=== PATIENT | female | born 1985 | race Two or more races ===

== ENCOUNTER 2020-03-06 20:29 | Emergency (ER) | payer OTHER, SELFPAY ==
[2020-03-06 20:40] VITALS: BP 107/59; PULSE 103; RESP 16; TEMP 37.6; BMI 32.3
[2020-03-06 21:59] LABS: UPreg QC Valid YES; Urine Pregnancy NEGATIVE (NEGATIVE)
[2020-03-06 22:26] VITALS: BP 105/65; PULSE 87; RESP 18; TEMP 37.3; O2SAT 99
--- NOTE | 2020-03-06 23:01 | ED.ABDPAIN ---
HPI - Abdominal Pain General Chief Complaint: Abdominal Pain Stated Complaint: wound check Time Seen by Provider: 03/06/20 21:27 Source: patient History of Present Illness HPI narrative: patient states several months ago had a liposuction and since then has been having ongoing problems with his surgical sites, had a wound VAC and saw her surgeon this week however wants a 2nd opinion on her wounds because now they are red with a little bit of oozing. No fevers no chills. MD elicited complaint: abdominal pain Pain Consistency: constant Radiation: none Related Data Previous Rx's Medication Instructions Recorded clindamycin HCl 300 mg PO Q8H #21 cap 03/06/20 Allergies Allergy/AdvReac Type Severity Reaction Status Date / Time No Known Allergies Allergy Unverified 02/19/20 19:52 [No Known Allergies*] Review of Systems Comments: Constitutional : No Weight loss, No Fever, No Chills, No Night Sweats, No Fatigue, No Malaise ENT/Mouth : No Hearing loss, No Ear Pain, No Nasal Congestion, No Sinus Pain, No Hoarseness, No sore throat, No Rhinorrhea, No Swallowing Difficulty Eyes: No Eye Pain, No Swelling, No Redness, No Foreign Body, No Discharge, No Vision Changes Cardiovascular : No Chest Pain, No SOB, No Dyspnea on Exertion, No Orthopnea, No Edema, No Palpitations Respiratory : No Cough, No Sputum, No Wheezing, No Smoke Exposure, No Dyspnea Gastrointestinal : No Nausea, No Vomiting, No Diarrhea, No Constipation, No abdominal Pain, No Hematochezia, No Melena Genitourinary : no irregular bleeding, No Dysuria, No Urinary Frequency, No Hematuria, No Urinary Incontinence, No Urgency, No Flank Pain, No Urinary Flow Changes, No Hesitancy Musculoskeletal : No joint pain, No Myalgias, No Joint Swelling Skin : No Skin Lesions, Umbilical hole open wound without discharge and no erythema. Left-sided 2 cm diameter wound with slight erythema and mild discharge slight tenderness Neuro : No Weakness, No Numbness, No Paresthesias, No Loss of Consciousness, No Dizziness, No Headache Psych : No Anxiety/Panic, No Depression, No SI/HI/AH/VH, No Social Issues, Heme/Lymph: No Bruising, No Bleeding,No Lymphadenopathy Endocrine : No Polyuria, No Polydipsia, No Temperature Intolerance Physical Exam Vital Signs and I&O and Narrative: Vital Signs and I&O: Vital Signs Temp 97.8 F 03/07/20 00:00 Pulse 88 03/07/20 00:00 Resp 16 03/07/20 00:00 BP 104/68 03/07/20 00:00 Pulse Ox 99 03/07/20 00:00 Intake & Output 03/06/20 03/06/20 03/07/20 06:59 18:59 06:59 Weight 80.189 kg Body Mass Index 32.3 reviewed Const: Other: Appearance: Alert. Oriented X3. No acute distress. Eyes: Pupils equal, round and reactive to light. ENT: Pharynx normal. Neck: Normal inspection. Neck supple. CVS: Normal heart rate and rhythm. Pulses normal. Respiratory: No respiratory distress. Breath sounds normal. Abdomen: Soft and umbilical open wound without erythema. Left-sided cellulitic changes circular diameter approximately 2 cm with small incision with small pus drainage however no induration Skin: Skin warm and dry. Normal skin color. Normal skin turgor. Extremities: No lower extremity edema. No lower extremity edema. Neuro: Oriented X 3. No motor deficit. No sensory deficit. General: cooperative Course Reevaluation(s) Reevaluation #1: I discussed with patient need to follow up with her previous surgeon however she wants a 2nd opinion will refer to wound management. At this point patient looks very well nontoxic appearing at the house the patient is toxic MDM - Abdominal Pain Lab Data Labs: Lab Results 03/06/20 Range/Units 21:43 Urine Test NEGATIVE (NEGATIVE) Discharge Plan Discharge Clinical Impression: Abdominal wall cellulitis Patient Disposition: Home, Self-Care Instructions: Cellulitis (ED) Additional Instructions: Thank you for visiting the emergency department today. If your symptoms worsen or do not resolve completely please return to the emergency department immediately or call 911. if he have any questions please call your primary care physician Prescriptions: New clindamycin HCl 300 mg capsule 300 mg PO Q8H Qty: 21 RF: 0 Referrals: [facility] [place] Wound Care Management [Provider Group] - 2 days Interventions: ED Discharge Assessment Last Done: 03/07/20 00:36 Discharge Date/Time: 03/07/20 00:37 [facility] Past Medical History Attestation statement: The following information was validated with the patient. Surgical History (Updated 03/06/20 @ 23:11 by Ovi Irene DO) Hx of abdominal surgery Family History Family History (Updated 03/06/20 @ 23:11 by Ovi Irene DO) Other Patient denies medical problems Social History Social History Alcohol intake: never Smoking Status: Never smoker Use of substances other than those prescribed or required for medical reasons: No Advance Directives: No Advance Directives Information Provided: No
[2020-03-07] VITALS: BP 104/68; PULSE 88; RESP 16; TEMP 36.6; O2SAT 99
[2020-03-07] MEDS: Acetaminophen 325 MG TABLET 650 MG PO (00:30)
== END 2020-03-07 00:37 | disposition home or self-care (01) ==
PROVIDERS: Emergency Provider Emergency Medicine
DX: L03.311 Cellulitis of abdominal wall (principal)
CPT/HCPCS: 81025; 99283; 99284

== ENCOUNTER 2020-09-22 11:31 | Outpatient (REF) | payer OTHER, SELFPAY | END 2020-09-22 11:32 | disposition home or self-care (01) | LOC: HO.LAB 11:31 | PROVIDERS: Visit Provider Internal Medicine | DX: Z20.822 Contact with and (suspected) exposure to COVID-19 (principal) | CPT/HCPCS: C9803; U0003; U0005 ==

== ENCOUNTER 2020-10-13 12:55 | Outpatient (REF) | payer OTHER, SELFPAY | END 2020-10-13 12:56 | disposition home or self-care (01) | LOC: HO.LAB 12:55 | PROVIDERS: Visit Provider Internal Medicine | DX: Z20.822 Contact with and (suspected) exposure to COVID-19 (principal) | CPT/HCPCS: C9803; U0003; U0005 ==

== ENCOUNTER 2022-11-09 19:05 | Emergency (ER) | payer MEDICAID, SELFPAY ==
--- NOTE | 2022-11-09 19:14 | ED_ITS ---
HPI - General Adult General Chief complaint: Urogenital-Female Stated complaint: Trouble using Bathroom Time Seen by Provider: 11/09/22 21:28 Source: patient Mode of arrival: ambulatory Limitations: no limitations History of Present Illness HPI narrative: Patient with no significant past medical history complaining of dysuria, frequency, urgency for last 3 days with chills slight nausea no vomiting no flank pain does have low back pain no history of diabetes patient does not get UTI very often Related Data Previous Rx's Medication Instructions Recorded nitrofurantoin 100 mg PO Q12H 7 days #14 caps 11/09/22 monohydrate/macrocrystals 100 mg capsule (Macrobid) phenazopyridine 200 mg tablet 200 mg PO TID 2 days #6 tabs 11/09/22 (Pyridium) Allergies Allergy/AdvReac Type Severity Reaction Status Date / Time No Known Allergies Allergy Unverified 11/09/22 19:16 [No Known Allergies*] Review of Systems Review of Systems: Yes all other systems are reviewed and are negative [facility] Past Medical History Surgical History (Updated 03/06/20 @ 23:11 by Ovi Irene DO) Hx of abdominal surgery Family History Family History (Updated 03/06/20 @ 23:11 by Ovi Irene DO) Other Patient denies medical problems Social History Social History Alcohol intake: current Alcohol intake frequency: a few times a month Smoked in Last 30 Days: No Use of substances other than those prescribed or required for medical reasons: No Advance Directives: No Advance Directives Information Provided: No Patient : No Physical Exam ED Vital Signs: Vital Signs - 24 hr 11/09/22 19:17 11/09/22 22:42 Temperature 97.7 F 98.1 F Pulse Rate 99 92 Respiratory Rate 16 18 Blood Pressure 139/79 137/85 Pulse Oximetry 97 Oxygen Delivery Method Room Air Room Air BMI result Body Mass Index 34.3 Appearance: Alert. Oriented X3. No acute distress. ENT: Pharynx normal. Oral Mucosa moist Neck: Normal inspection. Neck supple. CVS: Normal heart rate and rhythm. Pulses normal. Respiratory: No respiratory distress. Equal air entry bilateral, no wheezing/rales/rhonchi Abdomen: Soft, mild suprapubic tenderness no rebound tenderness good Bowel sounds are present, no mass palpable, no CVA tenderness Skin: Skin warm and dry. Normal skin color. Normal skin turgor. Extremities: No lower extremity edema. No calf tenderness Neuro: Oriented X 3. No motor deficit. Course Course Course Narrative: 37 year old female presents for evaluation of dysuria for the last 2 days. UA ordered. Patient is currently on her menses Medications Administered Discontinued Medications Generic Name Dose Route Start Last Admin Trade Name Freq PRN Reason Stop Dose Admin Nitrofurantoin Macrocrystals 100 mg 11/09/22 21:40 11/09/22 22:38 Nitrofurantoin Monohyd/M-Cryst 100 Mg Capsule PO 11/09/22 21:41 100 mg ONCE ONE Administration Phenazopyridine HCl 200 mg 11/09/22 21:40 11/09/22 22:39 Phenazopyridine Hcl 200 Mg Tablet PO 11/09/22 21:41 200 mg ONCE ONE Administration Tramadol HCl 50 mg 11/09/22 22:30 11/09/22 22:38 Tramadol Hcl 50 Mg Tablet PO 11/09/22 22:31 50 mg ONCE ONE Administration Medical Decision Making Medical Decision Making [facility] Narrative: Patient with uncomplicated UTI non discharge patient home home on Macrobid and Pyridium Lab Data [facility] Lab Attestation statement: I reviewed the patient's lab results. Labs: Lab Results 11/09/22 11/09/22 11/09/22 Range/Units 19:35 19:35 22:28 POC Glucose 87 (60-115) mg/dL Urine Color [place] Urine Appearance Turbid Urine pH 6.5 (5.0-9.0) Ur Specific [place] 1.025 (1.005-1.025) Urine Protein 300 (3+) H (Neg-Trace) mg/dL Urine Glucose (UA) 250 H (Negative) mg/dL Urine Ketones Trace (Negative) mg/dL Urine Blood Large (3+) H (Negative) Urine Nitrite Positive H (Negative) Ur Leukocyte Esterase Moderate (2+) H (Negative) Urine RBC >20 H (0-2) /HPF Urine WBC >50 H (0-5) /HPF Ur Squamous Epith Cells 11-20 (0-2) /HPF Urine Bacteria 1+ (None Seen) Hyaline Casts 0-2 (0-2) /LPF Urine Test NEGATIVE (NEGATIVE) Discharge Plan Discharge Clinical Impression: Cystitis Patient Disposition: Home, Self-Care Instructions: Urinary Tract Infection in Women (ED) Additional Instructions: Drink plenty of fluids Take antibiotics and Pyridium as prescribed Report to the ER if high fever/vomiting/flank pain/not getting better Prescriptions: New nitrofurantoin monohyd/m-cryst [Macrobid] 100 mg capsule 100 mg PO Q12H 7 Days Qty: 14 0RF Rx Instructions: must administer with a meal/food phenazopyridine [Pyridium] 200 mg tablet 200 mg PO TID 2 Days Qty: 6 0RF Interventions: ED Discharge Assessment Last Done: 11/09/22 22:50 Discharge Date/Time: 11/09/22 22:53
[2022-11-09 19:17] VITALS: BP 139/79; PULSE 99; RESP 16; TEMP 36.5; O2SAT 97; BMI 34.3
[2022-11-09 19:46] LABS: Appearance Urine Turbid; Color Urine Orange; Glucose Urine UA 250 mg/dL (Negative); Leukocyte Esterase Urine Moderate (2+) (Negative); Nitrite Urine Positive (Negative); PH 6.5 (5.0-9.0); Specific Gravity - Urine 1.025 (1.005-1.025); UMIC TRIGGER UACC YES; Urine Blood Large (3+) (Negative); Urine Ketones Trace mg/dL (Negative); Urine Protein 300 (3+) mg/dL (Neg-Trace)
[2022-11-09 19:51] LABS: Bacteria Urine 1+ (None Seen); Hyaline Casts Urine 0-2 /LPF (0-2); UACC Culture Trigger YES; WBC Urine >50 /HPF (0-5)
[2022-11-09 20:09] LABS: RBC Urine >20 /HPF (0-2)
[2022-11-09 22:15] LABS: UPreg QC Valid YES; Urine Pregnancy NEGATIVE (NEGATIVE)
[2022-11-09 22:31] LABS: Glucose, Whole Blood 87 mg/dL (60-115)
[2022-11-09] MEDS: Nitrofurantoin Monohyd/M-Cryst 100 MG CAPSULE PO (22:38)
[2022-11-09] MEDS: traMADoL HCL 50 MG TABLET PO (22:38)
[2022-11-09] MEDS: Phenazopyridine HCL 200 MG TABLET PO (22:39)
[2022-11-09 22:42] VITALS: BP 137/85; PULSE 92; RESP 18; TEMP 36.7
--- NOTE | 2022-11-09 22:53 | PC.NURSE ---
patient was medicated and explained all paperwork patient vitals were stable patient was discarded from everything and released to go home
== END 2022-11-09 22:53 | disposition home or self-care (01) ==
PROVIDERS: Physician Assistant; Emergency Provider Internal Medicine
DX: N30.90 Cystitis, unspecified without hematuria (principal); B95.7 Other staphylococcus as the cause of diseases classified elsewhere
CPT/HCPCS: 81001; 81025; 82947; 87086; 87088; 87186; 99283; 99285

== ENCOUNTER 2024-06-03 13:51 | Emergency (ER) | payer MEDICAID, SELFPAY ==
--- NOTE | ~2024-06-03 | XR_ITS ---
EXAMINATION: XR CHEST CLINICAL INFORMATION: wheezing, shortness of breath x 3 days COMPARISON: None available. TECHNIQUE: 2 views of the chest were obtained. FINDINGS: Lungs are expanded and clear of acute pneumonic process. The heart size is enlarged. Pulmonary vascularity is prominent. No pleural effusion seen. Visualized bones are grossly unremarkable. XR/XR chest 2V IMPRESSION: Borderline cardiomegaly. Electronically signed by: Aidan Ro MD 06/03/2024 02:20 PM EST
--- NOTE | 2024-06-03 13:52 | ED.GENADULT ---
HPI - General Adult General Chief complaint: Asthma Stated complaint: SOB Time Seen by Provider: 06/03/24 15:05 Source: patient Mode of arrival: ambulatory Limitations: no limitations History of Present Illness ED Provider: AKI WHYTE PA-C HPI narrative: 39 year old female with pmhx significant for asthma presents to the ED today for evaluation of shortness of breath and wheezing x3 days. Endorses associated chest discomfort. Admits to using her nebulizer every 4 hours and rescue inhaler without improvement. No known sick contacts. Denies fever, chills, sore throat, cough, sputum production, calf pain. No recent travel or long car rides. No hormonal therapy. Related Data Previous Rx's ?Medication ?Instructions ?Recorded nitrofurantoin 100 mg PO Q12H 7 days #14 caps 11/09/22 monohydrate/macrocrystals 100 mg capsule (Macrobid) phenazopyridine 200 mg tablet 200 mg PO TID 2 days #6 tabs 11/09/22 (Pyridium) albuterol sulfate 2.5 mg/0.5 mL 5 mg inhalation Q4H PRN shortness 06/03/24 solution for nebulization of breath or wheezing #30 ea prednisone 20 mg tablet 40 mg (2 x 20 mg) PO DAILY 5 days 06/03/24 #10 tabs Allergies Allergy/AdvReac Type Severity Reaction Status Date / Time No Known Allergies Allergy Verified 06/03/24 13:56 [No Known Allergies*] Review of Systems Review of Systems: Constitutional: No fever, chills, fatigue, night sweats, weight changes ENT/Mouth: No ear pain, hearing loss, nasal congestion, sinus pain, rhinorrhea, sore throat Eyes: No eye pain, swelling, redness, vision changes, discharge Cardio: No chest pain, palpitations, ACEVES, orthopnea, peripheral edema Pulm: No SOB, dyspnea, hemoptysis, +cough, +wheezing GI: No nausea, vomiting, hematemesis, abdominal pain, diarrhea, constipation, hematochezia, melena : No irregular bleeding, dysuria, frequency, urgency, hesitancy, hematuria, flank pain, urinary flow changes, urinary incontinence or retention MSK: No back pain, neck pain, joint pain, myalgias Skin: No lesions, rashes Neuro: No weakness, numbness, paresthesias, LOC, dizziness, headache Psych: No anxiety/panic, depression, SI/HI, AH/VH All other systems reviewed and are negative. [facility] Past Medical History Attestation statement: The following information was validated with the patient. Source: old records reviewed and nursing notes reviewed Surgical History Hx of abdominal surgery Family History Family History Other Patient denies medical problems Social History Social History Alcohol intake: current Alcohol intake frequency: a few times a month Advance Directives: No Advance Directives Information Provided: Yes Physical Exam ED Vital Signs: Vital Signs - 24 hr 06/03/24 13:53 06/03/24 14:12 06/03/24 17:46 Temperature 98 F Pulse Rate 110 H 110 H 110 H Respiratory Rate 24 H 24 H 18 Blood Pressure 135/90 H Pulse Oximetry 98 Oxygen Delivery Method Room Air BMI result Body Mass Index 34.0 tachycardic, tachypnic, hypertensive General: Well appearing, in no acute distress. Skin: Warm, dry, intact. No rashes or lesions. Head: Normocephalic, atraumatic. EENT: Hearing is intact b/l. Conjunctiva clear. PERRLA. EOM intact. Moist mucous membranes.? Neck: Supple without LAD Cardiac: Chest wall symmetric. RRR Lungs: Normal respiratory effort without accessory muscle use. No tripoding. Bronchospastic cough. Bilateral expiratory wheezes and rhonchi (R>L) Abdomen: Soft, non-tender, non-distended Back: No midline spinous or paraspinal tenderness. No step off deformity. Ext: Upper and lower extremities atraumatic, without tenderness, deformity, swelling or erythema. no calf tenderness. Neuro: AOx3. Normal speech. Ambulating with steady gait. Psych: Appropriate mood and affect. Responds appropriately to questions. Course Course Course Narrative: This is a rapid medical exam performed by Gilma Rosas NP: Additional HPI, ROS, PE not included below will be deferred to primary provider. Patient is a 39-year-old female with history of asthma presenting with 3 days of shortness of breath and wheezing. Using inhalers and nebulizer without relief. Plan: viral serology, CXR, ed bronch protocol Reevaluation(s) Reevaluation #1: 1507 -- Patient tested positive for RSV. Negative for COVID, flu. Chest x-ray does not demonstrate pneumonia. No pleural effusion. meds ordered. 1831 - patient received 2 albuterol treatments, IV Solu-Medrol, IV Mag. She continues to have diffuse expiratory wheezes and rhonchi. She is satting 90% on room air and there are no signs of respiratory distress however she tells me she feels short of breath. Concern for asthma exacerbation secondary to RSV. My recommendation for patient was admission to medicine for IV steroids. She was declining at this time. States she has to tend to her family at home. She will be signing out AMA. Prednisone and albuterol sent to pharmacy for treatment. Encouraged to return at any time. Discussed worrisome signs and symptoms and when to return to the ED. All questions answered at this time. Medications Administered Discontinued Medications Generic Name Dose Route Start Last Admin Trade Name [place] PRN Reason Stop Dose Admin Levalbuterol HCl 3.75 mg/ 0 mg 06/03/24 14:12 06/03/24 14:15 Ipratropium [place] 0.5 mg INHALE 06/03/24 14:13 1 dose ONCE ONE Administration Levalbuterol HCl 1.25 mg/ 0 mg 06/03/24 17:46 06/03/24 17:49 Ipratropium [place] 0.5 mg INHALE 06/03/24 17:47 1 dose ONCE ONE Administration Magnesium Sulfate 2 gm in 50 mls @ 150 mls/hr 06/03/24 16:09 06/03/24 17:01 Magnesium Sulfate/H2o IV 06/03/24 16:28 Infused ONCE ONE Infusion Methylprednisolone Sodium Succinate 125 mg 06/03/24 15:06 06/03/24 16:38 Methylprednisolone Sod Succ 125 Mg/2 Ml Vial IVPUSH 06/03/24 15:07 125 mg ONCE ONE Administration Medical Decision Making Medical Decision Making MDM Narrative: 39 year old female with pmhx significant for asthma presents to the ED today for evaluation of shortness of breath and wheezing x3 days. On arrival, patient tachycardic to 110, hypertensive to 135/90, tachypneic to 24. Afebrile and not hypoxic. No tripoding or accessory muscle use. No obvious respiratory distress. Lungs with diffuse expiratory wheezes/rhonchi (R>L). No calf tenderness. No pitting edema or JVD. No rashes. Differential diagnosis includes viral syndrome, asthma exacerbation, pneumonia, bronchitis. Unlikely pulmonary embolism, pleural effusion, ACS, arrhythmia. Plan for viral swabs, chest x-ray, ED bronch protocol, re-evaluation. Differential Diagnosis Differential Diagnoses: The differential diagnosis associated with the presentation includes as above. Admission/Observation Consideration of admission/observation: Escalation of care including admission/observation considered Patient presents with asthma exacerbation secondary to RSV infection. She was treated with IV medications with minimal improvement. Continues to have expiratory wheezes and rhonchi. Looks generally unwell however satting 98& on RA. I recommended admission to medicine for IV steroids however patient is declining at this time and would like to be discharged home. She is leaving AMA. Lab Data MDM Lab Attestation statement: I reviewed the patient's lab results. as above Labs: Lab Results 06/03/24 Range/Units 15:18 Influenza Type A (PCR) NEGATIVE (Negative) Influenza Type B (PCR) NEGATIVE (Negative) RSV RNA Qual (PCR) POSITIVE A (Negative) SARS-CoV-2 RNA (RT-PCR) NEGATIVE (Negative) Independent Interpretation I performed an independent interpretation of an: Plain X-Ray Interpretation: CXR without focal consolidation or infiltrate Radiology Impression Discussion of test interpretation with radiology: I have reviewed the radiologist's reading. Radiologist Impression: EXAMINATION: XR CHEST CLINICAL INFORMATION: wheezing, shortness of breath x 3 days COMPARISON: None available. TECHNIQUE: 2 views of the chest were obtained. FINDINGS: Lungs are expanded and clear of acute pneumonic process. The heart size is enlarged. Pulmonary vascularity is prominent. No pleural effusion seen. Visualized bones are grossly unremarkable. XR/XR chest 2V IMPRESSION: Borderline cardiomegaly. Electronically signed by: Aidan Ro MD 06/03/2024 02:20 PM [facility] [place], [place] External Record Review External record reviewed: Inpatient record Prescription Management I considered prescription management with: Other (Prednisone) Chronic Conditions Patient?s care impacted by: Other (asthma) Social Determinants Patient?s care significantly limited by Social Determinants of Health including: Other Social Determinant of Health Critical Care Time Critical Care Time Critical Care Time: Yes Total Critical Care Time: 32 Attestation: Critical care time in the amount of 32 minutes has been provided to the patient in terms of direct patient care, frequent reevaluation on IV mag, review and interpretation of medical data and results, and management of potentially life-threatening conditions. This is all outside of any medical procedures. Discharge Plan Discharge Clinical Impression: Respiratory syncytial virus (RSV), Asthma exacerbation Patient Disposition: Left Against Medical Advice Instructions: Respiratory Syncytial Virus (ED), Asthma (ED) Additional Instructions: You were evaluated in the ED today for your breathing. You tested positive for RSV. Your chest xray does not demonstrate pneumonia. You were treated with two breathing treatments and IV medications with minimal improvement. As discussed, my recommendation is that you be admitted to medicine for further treatment with IV steroids. You are declining at this time. I encourage you to return to the ED at any time, or with any new/ worsening symptoms. Treatment for RSV specifically is symptomatic. This does not require treatment with antibiotics. You may take Tylenol ibuprofen as needed for fever or body aches. Continue your albuterol/nebulizer at home as needed for shortness of breath or wheezing. As discussed, if you find yourself using this more often without improvement, please return to the ED as you require further treatment. Prednisone as a steroid that has been sent to your pharmacy. Take this as prescribed with the next dose being tomorrow. You already received a dose of steroids in the ED today. Follow up with your PCP. Return with new or worsening symptoms In the case of an emergency call 911 Prescriptions: New prednisone 20 mg tablet 40 mg PO DAILY 5 Days Qty: 10 0RF albuterol sulfate 2.5 mg/0.5 mL solution for nebulization 5 mg inhalation Q4H PRN (Reason: shortness of breath or wheezing) Qty: 30 0RF No Action nitrofurantoin monohyd/m-cryst [Macrobid] 100 mg capsule 100 mg PO Q12H 7 Days Qty: 14 0RF Rx Instructions: must administer with a meal/food phenazopyridine [Pyridium] 200 mg tablet 200 mg PO TID 2 Days Qty: 6 0RF Stand Alone Forms: Against Medical Advice, Work/School Release Print Language: Lithuanian
[2024-06-03 13:53] VITALS: BP 135/90; PULSE 110; RESP 24; TEMP 36.6; O2SAT 98; BMI 34.0
[2024-06-03 14:12] VITALS: PULSE 110; RESP 24; O2SAT 98
[2024-06-03] MEDS: levalbuterol HCL 3.75 MG, Ipratropium Bromide 0.5 MG INHALE (14:15)
[2024-06-03 16:17] LABS: Influenza A PCR NEGATIVE (Negative); Influenza B PCR NEGATIVE (Negative); Resp Syncy Virus RNA Qual PCR POSITIVE (Negative); SARS COV2 PCR INHOUSE NEGATIVE (Negative)
[2024-06-03] MEDS: methylPREDNISolone Sod Succ 125 MG/2 ML VIAL IVPUSH (16:38)
[2024-06-03] MEDS: Magnesium Sulfate/H2O 2 GM/50 ML PIGGYBACK IV (16:41)
[2024-06-03 17:46] VITALS: PULSE 110; RESP 18; O2SAT 97
[2024-06-03] MEDS: levalbuterol HCL 1.25 MG, Ipratropium Bromide 0.5 MG INHALE (17:49)
[2024-06-03 19:16] VITALS: BP 142/80; PULSE 110; RESP 18; TEMP 37.1; O2SAT 97
== END 2024-06-03 19:16 | disposition left against medical advice (07) ==
PROVIDERS: Registered Nurse Emergency; Emergency Provider Emergency Medicine
DX: J22 Unspecified acute lower respiratory infection (principal); B97.4 Respiratory syncytial virus as the cause of diseases classified elsewhere; J45.901 Unspecified asthma with (acute) exacerbation; R06.02 Shortness of breath; Z03.818 Encounter for observation for suspected exposure to other biological agents ruled out
CPT/HCPCS: 0241U; 71046; 94640; 96365; 96375; 99283; 99284; J2919; J3475

== ENCOUNTER → 2024-06-03 13:53 | Outpatient (BNV) | payer MEDICAID, SELFPAY | PROVIDERS: Visit Provider Radiology Diagnostic Radiology | DX: R06.02 Shortness of breath (principal) | CPT/HCPCS: 71046 ==

== ENCOUNTER 2024-09-02 21:04 | Emergency (ER) | payer MEDICAID, SELFPAY ==
[2024-09-02 21:19] VITALS: BP 143/94; PULSE 100; RESP 16; TEMP 36.7; O2SAT 97; BMI 32.9
[2024-09-02 21:57] LABS: MANUAL DIFF FLAG NO
[2024-09-02 21:58] LABS: Basophils Absolute Auto 0.1 X10*3/uL (0.0-0.2); Basophils Percent Auto 0.9 % (0-2); Eosinophils Absolute Auto 0.6 X10*3/uL (0.0-0.4); Hematocrit 34.6 % (37.0-47.0); Hemoglobin 11.5 g/dl (12.0-16.0); Imm Gran Abs Auto 0.01 X10*3/uL (0.00-0.03); Imm Gran Pct Auto 0.1 % (0.0-0.4); Lymphocytes Absolute Auto 2.5 X10*3/uL (1.2-4.9); Lymphocytes Percent Auto 30.9 % (20-40); Mean Corpuscular HGB Conc 33.2 g/dl (31.0-35.0); Mean Corpuscular Hemoglobin 29.6 pg (27.0-33.0); Mean Corpuscular Volume 89.2 fL (80.0-98.0); Mean Platelet Volume 9.1 fL (9.4-12.3); Monocytes Absolute Auto 0.5 X10*3/uL (0.1-1.2); Monocytes Percent Auto 6.3 % (2-11); Neutrophils Absolute Auto 4.5 x10*3/uL (2.0-8.3); Neutrophils Percent Auto 54.8 % (45-73); Platelet Count 299 X10*3/uL (160-400); Red Blood Count 3.88 X10*6/uL (4.20-5.50); Red Cell Distribution Width 13.3 % (11.0-16.0); White Blood Count 8.2 X10*3/uL (4.8-10.8)
[2024-09-02 22:05] LABS: Appearance Urine Cloudy; Color Urine Dark Yellow; Glucose Urine UA Negative (Negative); Leukocyte Esterase Urine Moderate (2+) (Negative); Nitrite Urine Positive (Negative); PH 7.5 (5.0-9.0); UMIC TRIGGER UACC YES; Urine Blood Trace (Negative); Urine Ketones Negative (Negative); Urine Protein 100 (2+) mg/dL (Neg-Trace)
[2024-09-02 22:13] LABS: Alanine Aminotransferase 59 U/L (0-31); Albumin Level 3.9 g/dL (3.5-5.0); Alkaline Phosphatase 85 U/L (39-117); Anion Gap 10 (12-20); Aspartate Amino Transferase 30 U/L (5-31); Bilirubin Total 0.3 mg/dL (0.0-1.0); Blood Urea Nitrogen 15 mg/dL (9-16); Calcium 8.8 mg/dL (8.4-10.2); Carbon Dioxide 26 mmol/L (22-29); Chloride 109 mmol/L (96-108); Creatinine Clr Calc Pharmacy 83.1; Estimated Glomerular Filt Rate > 60; Glucose Random 97 mg/dL (60-115); Potassium 3.7 mmol/L (3.3-5.1); Sodium 141 mmol/L (135-145); Total Protein 6.8 g/dL (6.5-8.0)
[2024-09-02 22:18] LABS: Bacteria Urine None Seen (None Seen); Hyaline Casts Urine 0-2 /LPF (0-2); Squamous Epithelial Cell Urine 0-2 /HPF (0-2); UACC Culture Trigger YES; WBC Urine 21-50 /HPF (0-5)
[2024-09-03] LABS: UPreg QC Valid YES; Urine Pregnancy NEGATIVE (NEGATIVE)
[2024-09-03 00:09] VITALS: BP 144/91; PULSE 98; RESP 18; TEMP 36.7; O2SAT 97
--- NOTE | 2024-09-03 00:11 | PC.NURSE ---
PA to triage to reeval pt, VSS.
--- NOTE | 2024-09-03 00:19 | ED_ITS ---
HPI - Female Genitourinary General Chief complaint: Urogenital-Female Stated complaint: Flank pain/unable to urinate Time Seen by Provider: 09/02/24 23:49 Source: patient Mode of arrival: ambulatory Limitations: no limitations History of Present Illness ED Provider: Cathy Lane NP HPI Narrative: Patient is a 39-year-old female who presents emergency department for evaluation over the past few days she has been experiencing dysuria, urinary hesitancy, bilateral flank pain. It endorses occasional chills but denies any notable fever. She admits to a history of urinary tract infections in the past, states she was last treated in April of 2024. She denies nausea, vomiting, hematuria, abnormal vaginal discharge or abnormal vaginal bleeding. Denies concern for . LMP 1 month prior. Reports symptoms at this time feel consistent with prior urinary tract infections. Related Data Previous Rx's ?Medication ?Instructions ?Recorded nitrofurantoin 100 mg PO Q12H 7 days #14 caps 11/09/22 monohydrate/macrocrystals 100 mg capsule (Macrobid) phenazopyridine 200 mg tablet 200 mg PO TID 2 days #6 tabs 11/09/22 (Pyridium) albuterol sulfate 2.5 mg/0.5 mL 5 mg inhalation Q4H PRN shortness 06/03/24 solution for nebulization of breath or wheezing #30 ea prednisone 20 mg tablet 40 mg (2 x 20 mg) PO DAILY 5 days 06/03/24 #10 tabs cefpodoxime 200 mg tablet 200 mg PO BID #19 tabs 09/03/24 phenazopyridine 200 mg tablet 200 mg PO TID PRN pain 6 doses #6 09/03/24 (Pyridium) tabs Allergies Allergy/AdvReac Type Severity Reaction Status Date / Time No Known Allergies Allergy Verified 09/02/24 21:23 [No Known Allergies*] Review of Systems 2 Review of Systems: Yes all other systems are reviewed and are negative PMFSH Past Medical History Attestation statement: The following information was validated with the patient. Source: old records reviewed Surgical History Hx of abdominal surgery Family History Family History Other Patient denies medical problems Social History Social History Alcohol intake: current Alcohol intake frequency: does not drink Smoked in Last 30 Days: No Use of substances other than those prescribed or required for medical reasons: No Advance Directives: No Advance Directives Information Provided: Yes Do you have a plan to hurt others: No Plan Physical Exam 2 Vital Signs: Vital Signs: Last Vital Signs Temp 98.0 F 09/03/24 00:09 Pulse 98 09/03/24 00:09 Resp 18 09/03/24 00:09 BP 144/91 H 09/03/24 00:09 Pulse Ox 97 09/03/24 00:09 O2 Del Method Room Air 09/03/24 00:09 BMI result Body Mass Index 32.9 Appearance: Alert.?Oriented to person, place and time. No acute distress.?Normal affect. CVS: Heart sounds normal. Normal heart rate and rhythm.? Pulses normal.?? Respiratory: No respiratory distress.? Lung sounds clear to auscultation bilaterally?? Abdomen: Soft and non-tender. Normoactive bowel sounds. No overt CVA tenderness on examination subjectively with pain Skin: Skin warm and dry.? Normal skin color.? ?? Extremities: No lower extremity edema.? Neuro: Moves all extremities spontaneously. Sensation intact bilaterally. No focal neuro deficits. Ambulates with normal steady gait. Medications Administered Discontinued Medications Generic Name Dose Route Start Last Admin Trade Name Freq PRN Reason Stop Dose Admin Cephalexin HCl 500 mg 09/03/24 00:19 09/03/24 00:33 Cephalexin 500 Mg Capsule PO 09/03/24 00:20 500 mg ONCE ONE Administration Phenazopyridine HCl 200 mg 09/03/24 00:19 09/03/24 00:34 Phenazopyridine Hcl 200 Mg Tablet PO 09/03/24 00:20 200 mg ONCE ONE Administration Medical Decision Making Medical Decision Making MDM Narrative: patient is a 39-year-old female who presents emergency department for evaluation of genitourinary symptoms as per HPI. History and examination concerning for pyelonephritis, no history of urolithiasis, no hematuria, lower suspicion for acute onset at this time. Workup reveals no leukocytosis, has a mild normocytic anemia that does not meet transfusion criteria, no thrombocytopenia. No significant electrolyte derangement. No MAHIN. LFTs are overall unremarkable. Urinalysis consistent with urinary tract infection. She received a single dose of Pyridium in the emergency department in addition to 1st dose of antibiotic, sent prescription for cefpodoxime and Pyridium to pharmacy. HCG is negative not consistent with ectopic . No unilateral abdominal pain or tenderness on examination, she is without concern for sexually transmitted infection. She denies any history of ovarian cyst lower suspicion for tubo-ovarian abscess/PID /torsion /ruptured cyst. At this time feel that she is stable for discharge home, reviewed worrisome signs and symptoms that would warrant re-evaluation in the emergency department. All questions answered. Differential Diagnosis Differential Diagnoses: The differential diagnosis associated with the presentation includes (See narrative above) Admission/Observation Consideration of admission/observation: Escalation of care including admission/observation considered Lab Data MDM Lab Attestation statement: I reviewed the patient's lab results. ( See narrative above) 09/02/24 21:46 09/02/24 21:46 Labs: Lab Results 09/02/24 Range/Units 21:46 WBC 8.2 (4.8-10.8) X10*3/uL RBC 3.88 L (4.20-5.50) X10*6/uL Hgb 11.5 L (12.0-16.0) g/dl Hct 34.6 L (37.0-47.0) % MCV 89.2 (80.0-98.0) fL MCH 29.6 (27.0-33.0) pg MCHC 33.2 (31.0-35.0) g/dl RDW 13.3 (11.0-16.0) % Plt Count 299 (160-400) X10*3/uL MPV 9.1 L (9.4-12.3) fL Immature Gran % (Auto) 0.1 (0.0-0.4) % Neut % (Auto) 54.8 (45-73) % Lymph % (Auto) 30.9 (20-40) % [place] % (Auto) 6.3 (2-11) % Eos % (Auto) 7.0 H (0-4) % Baso % (Auto) 0.9 (0-2) % Lymph # (Auto) 2.5 (1.2-4.9) X10*3/uL [place] # (Auto) 0.5 (0.1-1.2) X10*3/uL Eos # (Auto) 0.6 H (0.0-0.4) X10*3/uL Baso # (Auto) 0.1 (0.0-0.2) X10*3/uL Abs Immat Gran (auto) 0.01 (0.00-0.03) X10*3/uL Absolute Neuts (auto) 4.5 (2.0-8.3) x10*3/uL Absolute Nucleated RBC 0.000 (0.0-0.012) X10*3/uL Nucleated RBC % (auto) 0.0 (0.0-0.2) /100WBC Sodium 141 (135-145) mmol/L Potassium 3.7 (3.3-5.1) mmol/L Chloride 109 H (96-108) mmol/L Carbon Dioxide 26 (22-29) mmol/L Anion Gap 10 L (12-20) BUN 15 (9-16) mg/dL Creatinine 0.89 (0.5-1.4) mg/dL Estim Creat Clear Calc 83.1 Estimated GFR > 60 Random Glucose 97 (60-115) mg/dL Calcium 8.8 (8.4-10.2) mg/dL Total Bilirubin 0.3 (0.0-1.0) mg/dL AST 30 (5-31) U/L ALT 59 H (0-31) U/L Alkaline Phosphatase 85 (39-117) U/L Total Protein 6.8 (6.5-8.0) g/dL Albumin 3.9 (3.5-5.0) g/dL Urine Color Dark Yellow Urine Appearance Cloudy Urine pH 7.5 (5.0-9.0) Ur Specific [place] 1.020 (1.005-1.025) Urine Protein 100 (2+) H (Neg-Trace) mg/dL Urine Glucose (UA) Negative (Negative) mg/dL Urine Ketones Negative (Negative) mg/dL Urine Blood Trace H (Negative) Urine Nitrite Positive H (Negative) Ur Leukocyte Esterase Moderate (2+) H (Negative) Urine RBC 3-5 H (0-2) /HPF Urine WBC 21-50 (0-5) /HPF Ur Squamous Epith Cells 0-2 (0-2) /HPF Urine Bacteria None Seen (None Seen) Hyaline Casts 0-2 (0-2) /LPF Urine Test NEGATIVE (NEGATIVE) External Record Review External record reviewed: Outpatient record Prescription Management I considered prescription management with: Pain Medication and Antibiotic Discharge Plan Discharge Clinical Impression: Pyelonephritis Patient Disposition: Home, Self-Care Instructions: Kidney Infection (ED) Additional Instructions: testing in the emergency department today reveals findings consistent with urinary tract infection, given your associated pain in the back is concerning that infection has traveled upwards towards her kidneys. As discussed, your blood work was reassuring today, there was no evidence of damage or injury to your kidney functioning. You received a single dose of Pyridium in the emergency department to help with the burning with urination please be aware that this will cause your urine to turn a bright orange color please do not be alarmed. I have sent an additional prescription to the pharmacy for 5 additional doses. You also received a 1st dose of antibiotic in the emergency department today. I have sent a prescription to the pharmacy for cefpodoxime which he will take twice daily for a total of 10 days. You may pick this up from the pharmacy tomorrow and take your next dose tomorrow morning. Follow-up with your primary care doctor. Return with any new or worsening symptoms or concerns which includes but is not limited to worsening pain, inability to urinate, nausea with persistent vomiting, fevers, chills. Prescriptions: New phenazopyridine [Pyridium] 200 mg tablet 200 mg PO TID PRN (Reason: pain) Qty: 6 0RF cefpodoxime 200 mg tablet 200 mg PO BID Qty: 19 0RF Rx Instructions: must administer with a meal/food No Action nitrofurantoin monohyd/m-cryst [Macrobid] 100 mg capsule 100 mg PO Q12H 7 Days Qty: 14 0RF Rx Instructions: must administer with a meal/food phenazopyridine [Pyridium] 200 mg tablet 200 mg PO TID 2 Days Qty: 6 0RF prednisone 20 mg tablet 40 mg PO DAILY 5 Days Qty: 10 0RF albuterol sulfate 2.5 mg/0.5 mL solution for nebulization 5 mg inhalation Q4H PRN (Reason: shortness of breath or wheezing) Qty: 30 0RF Referrals: Physician,Unknown J [Primary Care Provider] - Print Language: Mongolian
[2024-09-03] MEDS: cephALEXin 500 MG CAPSULE PO (00:33)
[2024-09-03] MEDS: Phenazopyridine HCL 200 MG TABLET PO (00:34)
--- OUTSIDE RECORDS SUMMARY | 2024-09-03 00:52 | XMS_ITS | Clinical Summary ---
Author Organization [address] [facility] Address [address] [place] [address] Phone Care Team Providers Care Working Supervisor Name Role Phone Heather Henderson RESOURCE TEACHER Primary Care Provider Allergies No known active allergies Medications fluconazole (DIFLUCAN) 150 mg tablet Take 1 Tab by mouth daily. 03/04/2020 Active oxyCODONE-aceta minophen (PERCOCET) 5-325 mg per tablet Take 1-2 tablets by mouth every 4 hours as needed for Pain. Take 1-2 Tabs Every 4 hours as needed for severe pain 02/13/2020 Active Social History Tobacco Use Types Packs/Day Years Used Date Smoking Tobacco: Never Assessed Comments Unknown Sex and Gender Information Value Date Recorded Sex Assigned at Not on file Legal Sex Female 3:10 PM EST Gender Identity Not on file Sexual Orientation Not on file Plan of Treatment Health Maintenance Due Date Last Done Comments Breast Cancer Screening 1984 DTaP,Tdap,and Td Vaccines (1 - Tdap) 2003 Hepatitis B Vaccines (1 of 3 - 19+ 3-dose series) 2003 Cervical Cancer Screening: P ap Smear 07/15/2017 07/15/2014, 07/15/2014 Depression Screening 05/03/2022 HIV Screening 05/03/2022 Hepatitis C Screening 05/03/2022 Social Influencers of Health Screening 05/03/2022 COVID-19 Vaccine ( - 2023-2 5 season) 2024 Influenza Vaccine (#1) 2024 HIB Vaccines Aged Out No longer eligi ble based on patient's age to complete this topic HPV Vaccines Aged Out No longer eligi ble based on patient's age to complete this topic Hepatitis A Vaccines Aged Out No long er eligible based on patient's age to complete this topic IPV Vaccines Aged Out No longer eligi ble based on patient's age to complete this topic MMR Vaccines Aged Out No longer eligi ble based on patient's age to complete this topic Meningococcal ACWY Vaccine Aged Out N o longer eligible based on patient's age to complete this topic Meningococcal B Vacine Aged Out No lo nger eligible based on patient's age to complete this topic Pneumococcal Vaccine: Pediatrics (0 to 5 Years) and At-Risk Patients (6 to 64 Years) Aged Out No longer eligible b ased on patient's age to complete this topic RSV Immunization Patients Under 20 months Aged Out No longer eligible b ased on patient's age to complete this topic Varicella Vaccines Aged Out No longer eligible based on patient's age to complete this topic Procedures Procedure Name Priority Date/Time Associated Diagnosis Comments HPV Routine 07/15/2014 from Last 3 Months or Most Recently Relevant to Health Maintenance Results * Cervical Cancer Screening: HPV (07/15/2014) Cervical Cancer Screening: HPV Abstracted ,Negative Historical Provider MD HEALTH MAINTENANCE Final Result from Last 3 Months or Most Recently Relevant to Health Maintenance [place] Care Teams Working Supervisor Relationship Specialty Start Date End Date Gurung, Heather, RESOURCE TE[employer]ER [address] [place] [id number] PCP - General 11/06/22
[2024-09-03 01:02] VITALS: BP 144/91; PULSE 98; RESP 18; TEMP 36.7; O2SAT 97
== END 2024-09-03 01:03 | disposition home or self-care (01) ==
PROVIDERS: Emergency Provider Emergency Medicine
DX: N12 Tubulo-interstitial nephritis, not specified as acute or chronic (principal); R33.9 Retention of urine, unspecified; R10.2 Pelvic and perineal pain; Z79.899 Other long term (current) drug therapy
CPT/HCPCS: 36415; 80053; 81001; 81003; 81025; 85025; 87086; 87088; 87186; 99283; 99284

== ENCOUNTER 2025-04-19 13:17 | Emergency (ER) | payer MEDICAID, SELFPAY ==
[2025-04-19] VITALS (8 sets, daily range): BP systolic 121–135; BP diastolic 65–72; PULSE 99–131; RESP 16–18; TEMP 36.6–37.4; O2SAT 94–99; BMI 37.1
--- NOTE | ~2025-04-19 | XR_ITS ---
CLINICAL HISTORY: fever, sob 2 view chest x-ray. Comparison: 06/03/2024 Findings: No consolidation or effusion. Cardiac and mediastinal contours are stable. Bones unremarkable. Impression: 1. No acute pulmonary disease. This document has been electronically signed by: Chan Ashley MD on 04/19/2025 13:53:36
--- NOTE | 2025-04-19 13:19 | ED_ITS ---
HPI - General Adult General Chief complaint: Dyspnea Stated complaint: sob Time Seen by Provider: 04/19/25 15:04 Source: patient, family (Family member at bedside), RN notes reviewed and old records reviewed Mode of arrival: ambulatory Limitations: no limitations History of Present Illness ED Provider: MAURY Concepcion HPI narrative: 40-year-old female with medical history of asthma presents to the ED due to 2 days of subjective fevers, chills, dry persistent cough, shortness of breath, general malaise. Patient reports she has been using her albuterol inhaler at home without relief. Denies sick contacts. Denies chest pain, abdominal pain, nausea, vomiting, diarrhea, urinary symptoms MD complaint: fever, general malaise, cough, SOB, Related Data Previous Rx's ?Medication ?Instructions ?Recorded nitrofurantoin 100 mg PO Q12H 7 days #14 ca ps 11/09/22 monohydrate/macrocrystals 100 mg capsule (Macrobid) phenazopyridine 200 mg tablet 200 mg PO TID 2 days #6 tabs 11/09/22 (Pyridium) albuterol sulfate 2.5 mg/0.5 mL 5 mg inhalation Q4H MO N shortness 06/03/24 solution for nebulization of breath or wheezing #30 ea prednisone 20 mg tablet 40 mg (2 x 20 mg) PO DAILY 5 days 06/03/24 #10 tabs cefpodoxime 200 mg tablet 200 mg PO BID #19 tabs 09/03 phenazopyridine 200 mg tablet 200 mg PO TID PRN pain 6 doses #6 09/03/24 (Pyridium) tabs albuterol sulfate 90 mcg/actuation 2 inh inhalation Q4 -6H PRN 04/19/25 aerosol inhaler (Ventolin HFA) shortness of breath or wheezing #6.7 grams prednisone 20 mg tablet 20 mg PO BID 4 days #8 tabs 04/19/25 Allergies Allergy/AdvReac Type Severity Reaction Status Date / Time No Known Allergies (No Known Allergy Verified 04/19/25 13:26 Allergies*) Review of Systems 2 Review of Systems: Yes all other systems are reviewed and are negative PMFSH Past Medical History Attestation statement: The following information was validated with the patient. Source: old records reviewed and nursing notes reviewed Surgical History Hx of abdominal surgery Family History Family History Other Patient denies medical problems Social History Social History Alcohol intake: current Alcohol intake frequency: does not drink Smoked in Last 30 Days: No Advance Directives: No Advance Directives Information Provided: Yes Do you have a plan to hurt others: No Plan Physical Exam ED Vital Signs: Vital Signs - 24 hr 04/19/25 13:19 04/19/25 15:49 04/19/25 16:06 Temperature 97.8 F Pulse Rate 115 H 115 H Respiratory Rate 18 18 18 Blood Pressure 127/70 Pulse Oximetry 97 Oxygen Delivery Method Room Air 04/19/25 16:06 04/19/25 17:21 04/19/25 17:22 Temperature 99.4 F 99.2 F 99.2 F Pulse Rate 131 H 115 H Respiratory Rate 18 16 Blood Pressure 121/65 135/68 Pulse Oximetry 99 95 Oxygen Delivery Method Room Air Room Air 04/19/25 17:23 04/19/25 19:36 04/19/25 19:50 Temperature 99.2 F 98.6 F 98.6 F Pulse Rate 108 H 99 Respiratory Rate 18 18 Blood Pressure 121/72 121/72 Pulse Oximetry 94 94 Oxygen Delivery Method Room Air Room Air BMI result Body Mass Index 37.1 GENERAL APPEARANCE: ?AxOx4, no acute distress. HEENT: ?NC, AT. MMM. EOMI, clear conjunctiva, oropharynx clear. NECK: ?Supple without lymphadenopathy.? No stiffness or restricted ROM. HEART:? Normal rate and regular rhythm, normal S1/S2, no m/r/g LUNGS:?Mild expiratory wheeze, no ronchi present ABDOMEN: ?Soft, nontender, nondistended BACK: No CVAT, no obvious deformity. EXTREMITIES: ?Without cyanosis, clubbing or edema. NEUROLOGICAL: ?Grossly nonfocal. Alert and oriented, moving all 4 extremities. Skin: ?Warm and dry without any rash. Course Course Course Narrative: This is a Rapid Medical Examination (RME) performed by R. Raimonde PA-C in triage. Full HPI, ROS, assessment and treatment plan per primary provider in the Main ED. Hx: 40 yo F hx asthma here for eval of shortness of breath, fever, chest tightness x yesterday. Plan: viral swabs cxr Medications Administered Discontinued Medications Generic Name Dose Route Start Last Admin Trade Name Freq PRN Reason Stop Dose Admin Albuterol Sulfate 5 mg/ 0 mg 04/19/25 15:46 04/19/25 15:50 Albuterol/Ipratropium 3 ml INHALE 04/19/25 15:47 1 each ONCE ONE Administration Lactated Ringer's 1,000 mls @ 999 mls/hr 04/19/25 15:40 04/19/25 17:23 Lr IV 04/19/25 16:40 Infused .Q1H1M ONE Infusion Magnesium Sulfate 2 gm in 50 mls @ 150 mls/hr 04/19/25 15:40 04/19/25 17:23 Magnesium Sulfate/H2o IV 04/19/25 15:59 Infused ONCE ONE Infusion Acetaminophen 1,000 mg in 100 mls @ 400 mls/hr 04/19/25 15:40 04/19/25 17:22 Ofirmev IV 04/19/25 15:54 Infused ONCE ONE Infusion Lactated Ringer's 1,000 mls @ 999 mls/hr 04/19/25 17:23 04/19/25 17:50 Lr IV 04/19/25 18:23 999 mls/hr .Q1H1M ONE Administration Ibuprofen 400 mg 04/19/25 15:40 04/19/25 16:09 Ibuprofen 400 Mg Tablet PO 04/19/25 15:41 400 mg ONCE ONE Administration Methylprednisolone Sodium Succinate 60 mg 04/19/25 15:40 04/19/25 16:10 Methylprednisolone Sod Succ 125 Mg/2 Ml Vial IVPUSH 04/19/25 15:41 60 mg ONCE ONE Administration Medical Decision Making Medical Decision Making MDM Narrative: 40-year-old female with medical history of asthma presents to the ED due to 2 days of subjective fevers, chills, dry persistent cough, shortness of breath, general malaise. Patient reports she has been using her albuterol inhaler at home without relief VS on initial observation-BP 127/70, pulse rate of 115, respiratory rate of 18, afebrile with oral temp of 97.8?, O2 saturation 97% on room air. Physical exam reveals mild expiratory wheeze without rhonchi, cardiac exam was tachycardic rate, normal rhythm, no murmurs/rubs/gallops, abdomen is soft, nondistended, no rigidity, no guarding, nontender, no edema of the lower extremities Labs without leukocytosis/leukopenia, normocytic anemia with a hemoglobin of 11.7, and hematocrit of 36.5, transaminitis with AST of 73, ALT of 131. Viral serology positive for flu A. CXR without infiltrates, consolidations, no acute cardiopulmonary disease Patient without leukocytosis, afebrile with oral temp of 99.2?. Patient was medicated with 2 L IV fluids, 1 g IV Tylenol, 400 mg p.o. ibuprofen, 2 g IV magnesium sulfate, 60 mg Solu-Medrol, 5 mg Ventolin breathing treatment. Patient states she feels ?better? then when she initially presented. Patient's symptoms most likely due to influenza A. Patient will be discharged home with 4 day course of 40 mg prednisone, and albuterol inhaler as she states she is out of this medication at home. I counseled patient to follow up with her primary care doctor to ensure resolution of her symptoms. Patient feels well enough to go home for self-care and is in agreement with the plan. Differential Diagnosis Differential Diagnoses: The differential diagnosis associated with the presentation includes Asthma exacerbation COVID Flu Viral illness Admission/Observation Consideration of admission/observation: Escalation of care including admission/observation considered Lab Data MDM Lab Attestation statement: I reviewed the patient's lab results. 04/19/25 15:58 04/19/25 15:58 Labs: Lab Results 04/19/25 04/19/25 Range/Units 13:46 15:58 WBC 6.1 (4.8-10.8) X10*3/uL RBC 4.00 L (4.20-5.50) X10*6/uL Hgb 11.7 L (12.0-16.0) g/dl Hct 36.5 L (37.0-47.0) % MCV 91.3 (80.0-98.0) fL MCH 29.3 (27.0-33.0) pg MCHC 32.1 (31.0-35.0) g/dl RDW 13.4 (11.0-16.0) % Plt Count 235 (160-400) X10*3/uL MPV 9.5 (9.4-12.3) fL Immature Gran % (Auto) 0.2 (0.0-0.4) % Neut % (Auto) 69.5 (45-73) % Lymph % (Auto) 17.4 L (20-40) % Edgar % (Auto) 11.1 H (2-11) % Eos % (Auto) 1.1 (0-4) % Baso % (Auto) 0.7 (0-2) % Lymph # (Auto) 1.1 L (1.2-4.9) X10*3/uL Edgar # (Auto) 0.7 (0.1-1.2) X10*3/uL Eos # (Auto) 0.1 (0.0-0.4) X10*3/uL Baso # (Auto) 0.0 (0.0-0.2) X10*3/uL Abs Immat Gran (auto) 0.01 (0.00-0.03) X10*3/uL Absolute Neuts (auto) 4.2 (2.0-8.3) x10*3/uL Absolute Nucleated RBC 0.000 (0.0-0.012) X10*3/uL Nucleated RBC % (auto) 0.0 (0.0-0.2) /100WBC Sodium 136 (135-145) mmol/L Potassium 4.0 (3.3-5.1) mmol/L Chloride 105 (96-108) mmol/L Carbon Dioxide 24 (22-29) mmol/L Anion Gap 11 L (12-20) BUN 9 (9-16) mg/dL Creatinine 0.77 (0.5-1.4) mg/dL Estim Creat Clear Calc 101.4 Estimated GFR > 60 Random Glucose 110 (60-115) mg/dL Calcium 8.5 (8.4-10.2) mg/dL Magnesium 2.0 (1.6-2.6) mg/dL Total Bilirubin 0.2 (0.0-1.0) mg/dL AST 73 H (5-31) U/L ALT 131 H (0-31) U/L Alkaline Phosphatase 84 (39-117) U/L Total Protein 6.9 (6.5-8.0) g/dL Albumin 4.2 (3.5-5.0) g/dL Influenza Type A (PCR) POSITIVE A (Negative) Influenza Type B (PCR) NEGATIVE (Negative) RSV RNA Qual (PCR) NEGATIVE (Negative) SARS-CoV-2 RNA (RT-PCR) NEGATIVE (Negative) Independent Interpretation I performed an independent interpretation of an: Plain X-Ray Interpretation: I personally interpreted the CXR which was negative for infiltrates, consolidations, pneumothorax, pleural effusion, pulmonary edema, I agree with the radiologist's interpretation Radiology Impression Discussion of test interpretation with radiology: I have reviewed the radiologist's reading. Radiologist Impression: CXR Findings: No consolidation or effusion. Cardiac and mediastinal contours are stable. Bones unremarkable. Impression: 1. No acute pulmonary disease. This document has been electronically signed by: Chan Ashley MD on 04/19/2025 13:53:36 Dictated By: Chan Ashley MD Signed By: <Electronically signed by Chan Ashley MD in OV> 04/19/25 1354 Independent Historian Clinical information obtained from an independent historian. History obtained from or confirmed by: Other (Family member at bedside corroborating history) External Record Review External record reviewed: Inpatient record, Office record and Outpatient record Prescription Management I considered prescription management with: Antibiotic No antibiotics indicated, patient positive for influenza A Chronic Conditions Patient?s care impacted by: Other (Asthma) Discharge Plan Discharge Clinical Impression: Influenza A Patient Disposition: Home, Self-Care Additional Instructions: You were evaluated in the ED due to fevers, shortness of breath, general malaise. Your lab work was reassuring as you did not have a significant elevation or decrease in your white blood cell count indicative of systemic infection, no evidence of anemia, or electrolyte abnormalities. Your chest x- ray was normal. You were medicated in the department with 1 g of IV Tylenol, 400 mg ibuprofen, 2 L IV fluids, 2 g magnesium sulfate, and 60 mg Solu-Medrol for support of your lungs. Your swabs were positive for influenza A which was most likely causing your symptoms. It is important that you get adequate hydration through sports drinks like Gatorade, Powerade or Pedialyte. It is normal to have a decreased appetite during this time, just ensure that you are getting plenty of fluids and advance her appetite as tolerated. To manage fever and pain at home you can take 500 mg of Tylenol, and 400 mg of ibuprofen every 6 hours. Please follow up with your primary care doctor to ensure resolution of your symptoms. Please return to the emergency department if you experience fevers over 100.4? that are not managed by Tylenol/ibuprofen, chest pain, shortness of breath, abdominal pain, nausea, vomiting or any new/worsening/concerning symptoms. Prescriptions: New prednisone 20 mg tablet 20 mg PO BID 4 Days Qty: 8 0RF albuterol sulfate [Ventolin HFA] 90 mcg/actuation HFA aerosol inhaler 2 inh inhalation Q4-6H PRN (Reason: shortness of breath or wheezing) Qty: 6.7 0RF No Action nitrofurantoin monohyd/m-cryst [Macrobid] 100 mg capsule 100 mg PO Q12H 7 Days Qty: 14 0RF Rx Instructions: must administer with a meal/food phenazopyridine [Pyridium] 200 mg tablet 200 mg PO TID 2 Days Qty: 6 0RF prednisone 20 mg tablet 40 mg PO DAILY 5 Days Qty: 10 0RF albuterol sulfate 2.5 mg/0.5 mL solution for nebulization 5 mg inhalation Q4H PRN (Reason: shortness of breath or wheezing) Qty: 30 0RF phenazopyridine [Pyridium] 200 mg tablet 200 mg PO TID PRN (Reason: pain) Qty: 6 0RF cefpodoxime 200 mg tablet 200 mg PO BID Qty: 19 0RF Rx Instructions: must administer with a meal/food Stand Alone Forms: Work/School Release Interventions: ED Discharge Assessment Last Done: 04/19/25 19:50 Discharge Date/Time: 04/19/25 19:50 Print Language: [place]
[2025-04-19 14:25] LABS: Resp Syncy Virus RNA Qual PCR NEGATIVE (Negative); SARS COV2 PCR INHOUSE NEGATIVE (Negative)
--- OUTSIDE RECORDS SUMMARY | 2025-04-19 14:44 | XMS_ITS | Clinical Summary ---
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 Phone Unavailable Primary Care Provider Unavailabl e Social History Tobacco Use Types Packs/Day Years Used Date Smoking Tobacco: Never Assessed Comments Unknown Sex and Gender Information Value Date Recorded Sex Assigned at Not on file Legal Sex Female 2:16 AM EDT Gender Identity Not on file Sexual Orientation Not on file Plan of Treatment Health Maintenance Due Date Last Done Comments Depression Screening 1984 SDOH Screening 1984 Disability Screening 1984 Alcohol/Substance Use Screening 1996 Tobacco Screening 1996 Family Planning (PISQ) 1999 HPV Vaccines (1 - 3-dose series) 1999 Hepatitis C Screening 2002 Hepatitis A Vaccines (1 of 2 - Risk 2-dose series) 2003 Hepatitis B Vaccines (1 of 3 - 19+ 3-dose series) 2003 Pneumococcal Vaccine: Pediatrics (0 to 5 Years) and At-Risk Patients (6 to 49) Years (1 of 2 - PCV) 2003 Pap Smear 2005 Cervical Cancer Screening 2014 HPV/Cotest 2014 Mammogram 2024 COVID-19 Vaccine (3 - 2024-2 6 season) 2025 08/01/2022, 10/05/2021 Influenza Vaccine (#1) 2025 DTaP/Tdap/Td Vaccines (2 - T d or Tdap) 10/17/2032 10/17/2022 Zoster Vaccines (1 of 2) 2034 RSV Patients and Patients Aged 60 years or older (1 - 1-dose 75+ series) 2059 HIV Screening Completed 04/15/2020 HIB Vaccines Aged Out No longer eligi ble based on patient's age to complete this topic IPV Vaccines Aged Out No longer eligi ble based on patient's age to complete this topic Meningococcal B Vaccine Aged Out No l onger eligible based on patient's age to complete this topic Meningococcal Vaccine Aged Out No oskar akanksha eligible based on patient's age to complete this topic RSV under 20 months Aged Out No longe r eligible based on patient's age to complete this topic Rotavirus Vaccines Aged Out No longer eligible based on patient's age to complete this topic
--- OUTSIDE RECORDS SUMMARY | 2025-04-19 14:44 | XMS_ITS | Clinical Summary ---
Author Organization [facility] Address [address] [place] [address] Phone Care Team Providers Care Editor & Co Founder Name Role Phone Heather Henderson PITA Primary Care Provider [phone] Allergies No known active allergies Medications fluconazole (DIFLUCAN) 150 mg tablet Take 1 Tab by mouth daily. 03/04/2020 Active oxyCODONE-aceta minophen (PERCOCET) 5-325 mg per tablet Take 1-2 tablets by mouth every 4 hours as needed for Pain. Take 1-2 Tabs Every 4 hours as needed for severe pain 02/13/2020 Active Active Problems No known active problems Social History Tobacco Use Types Packs/Day Years Used Date Smoking Tobacco: Never Smokeless Tobacco: Never Tobacco Cessation:Counseling Given: Not Answered Comments Unknown Sex and Gender Information Value Date Recorded Sex Assigned at Not on file Legal Sex Female 3:10 PM EST Gender Identity Not on file Sexual Orientation Not on file Obstetrics History Last Filed Vital Signs Vital Sign Reading Time Taken Comments Blood Pressure 126/83 01/09/2025 6:54 PM EDT Pulse 100 01/09/2025 8:05 PM EDT Temperature 36.9 C (98.4 F) 01/09/2025 6:54 PM EDT Respiratory Rate 16 01/09/2025 6:54 PM EDT Oxygen Saturation 95% 01/09/2025 6:54 PM EDT Inhaled Oxygen Concentration - - Weight 82.6 kg (182 lb) 01/09/2025 6:54 PM EDT Height 157.5 cm (5' 2 ) 01/09/2025 6:54 PM EDT Body Mass Index 33.29 01/09/2025 6:54 PM EDT Plan of Treatment Health Maintenance Due Date Last Done Comments Breast Cancer Screening 1984 Hepatitis A Vaccines (1 of 2 - Risk 2-dose series) 2003 Pneumococcal Vaccine: Pediatrics (0 to 5 Years) and At-Risk Patients (6 to 49 Years) (1 of 2 - PCV) 2003 HPV Vaccines (1 - 3-dose SCD M series) 2011 Cervical Cancer Screening: P ap Smear 07/15/2017 07/15/2014, 07/15/2014 Hepatitis C Screening 05/03/2022 Social Influencers of Health Screening 05/03/2022 Depression Screening 06/04/2024 COVID-19 Vaccine (3 - 2024-2 6 season) 2025 08/01/2022, 10/05/2021 Hepatitis B Vaccines (2 of 3 - 19+ 3-dose series) 02/02/2025 01/05/2025 Influenza Vaccine (#1) 2025 Cholesterol Screening (Lipid Panel) 04/15/2025 04/15/2020, 04/15/2020 DTaP,Tdap,and Td Vaccines (2 - Td or Tdap) 10/17/2032 10/17/2022 RSV Immunization Adult Patients (1 - 1-dose 75+ series) 2059 HIV Screening Completed 04/15/2020 MMR Vaccines Aged Out 01/05/2025 No longer eligi ble based on patient's age to complete this topic HIB Vaccines Aged Out No longer eligi [...] Procedure Name Priority Date/Time Associated Diagnosis Comments HM HPV Routine 07/15/2014 from Last 3 Months or Most Recently Relevant to Health Maintenance Results * Cervical Cancer Screening: HPV (07/15/2014) Cervical Cancer Screening: HPV Abstracted ,Negative Historical Provider MD HEALTH MAINTENANCE Final Result from Last 3 Months or Most Recently Relevant to Health Maintenance Insurance MEDICAID - [place] Care Teams Editor & Co Founder Relationship Specialty Start Date End Date Heather Henderson NP [facility] [place] [address] PCP - General 11/06/22
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
[2025-04-19] MEDS: Albuterol Sulfate 5 MG, Albuterol/Iprat 2.5/0.5MG 3 ML 3 ML INHALE (15:50)
[2025-04-19 16:02] LABS: MANUAL DIFF FLAG NO
[2025-04-19 16:05] LABS: Hematocrit 36.5 % (37.0-47.0); Hemoglobin 11.7 g/dl (12.0-16.0); Imm Gran Abs Auto 0.01 X10*3/uL (0.00-0.03); Imm Gran Pct Auto 0.2 % (0.0-0.4); Lymphocytes Absolute Auto 1.1 X10*3/uL (1.2-4.9); Mean Corpuscular HGB Conc 32.1 g/dl (31.0-35.0); Mean Corpuscular Hemoglobin 29.3 pg (27.0-33.0); Mean Corpuscular Volume 91.3 fL (80.0-98.0); NRBC Abs Auto 0.000 X10*3/uL (0.0-0.012); NRBC Pct Auto 0.0 /100WBC (0.0-0.2); Platelet Count 235 X10*3/uL (160-400); Red Blood Count 4.00 X10*6/uL (4.20-5.50); White Blood Count 6.1 X10*3/uL (4.8-10.8)
[2025-04-19] MEDS: Lactated Ringers 1,000 ML 999 ML IV ×2 (16:09→17:50)
[2025-04-19] MEDS: Magnesium Sulfate/H2O 2 GM/50 ML PIGGYBACK IV (16:11)
[2025-04-19 16:17] LABS: Alanine Aminotransferase 131 U/L (0-31); Albumin Level 4.2 g/dL (3.5-5.0); Alkaline Phosphatase 84 U/L (39-117); Anion Gap 11 (12-20); Aspartate Amino Transferase 73 U/L (5-31); Blood Urea Nitrogen 9 mg/dL (9-16); Calcium 8.5 mg/dL (8.4-10.2); Carbon Dioxide 24 mmol/L (22-29); Chloride 105 mmol/L (96-108); Creatinine Clr Calc Pharmacy 101.4; Estimated Glomerular Filt Rate > 60; Magnesium 2.0 mg/dL (1.6-2.6); Potassium 4.0 mmol/L (3.3-5.1); Sodium 136 mmol/L (135-145); Total Protein 6.9 g/dL (6.5-8.0)
--- NOTE | 2025-04-19 18:20 | PC.NURSE ---
PA aware of pt temp not changing, pt feeling worse, another 1L ordered and running at this time
== END 2025-04-19 19:50 | disposition home or self-care (01) ==
PROVIDERS: Physician Assistant Medical; Emergency Provider Emergency Medicine; PCP Dentist General Practice
DX: J10.1 Influenza due to other identified influenza virus with other respiratory manifestations (principal)
CPT/HCPCS: 36415; 71046; 80053; 83735; 85025; 87637; 94640; 96361; 96374; 96375; 99284; 99285; J0131; J2919; J3475; J7120

== ENCOUNTER → 2025-04-19 13:20 | Outpatient (BNV) | payer MEDICAID, SELFPAY | PROVIDERS: Visit Provider Radiology Diagnostic Radiology | DX: R50.9 Fever, unspecified (principal); R06.02 Shortness of breath | CPT/HCPCS: 71046 ==